=== PATIENT | male | born 1950 | race Caucasian/White ===

== ENCOUNTER 2017-07-12 09:05 | Day surgery (SDC) | payer OTHER ==
[~2017-07-12 09:05] MED LIST: ALBU.083IS IH; ALBU90I INH; ASCO500 PO; ASPI81CH PO; ASPI81EC PO; AZIT250 PO; AZIT500 PO; Arthritis Pai42.5 GM TOP; Artificial Tear15 M4 BOTHEYES; BUPR75 PO; CLON.5 PO; CLON1 PO; COLL250TO TOP; DOC250 PO; FERR325 PO; FLUO20 PO; FORM12IH IH; GABA400 PO; GABA600 PO; HYDACE5 PO; HYDMETSO BOTHEYES; HYTRIN; INSR10I SC; ISOMON60ER PO; Isosorbide Mono60 MG PO; LISI5 PO; LMX TOP; LORA10 PO; LORA10ER PO; METCAR750 PO; METO50 PO; MOME220I IH; MORP15ER PO; NITR.4SL SL; OMEP20ER PO; ONDA4 PO; OXYACE5T PO; OXYC5 PO; POTA8 PO; PRED10 PO; Prilosec Otc20 MG PO; ROCEPHIN IV; SENN187 PO; SIMV10 PO; SOLUMEDROL IV; TEMA7.5 PO; TERA5; TERA5 PO; TERAZOSIN PO; TERB24TC TOP; TIOT18 IH; TRAZ100 PO; VITAMIN D31000 UNIT PO; Ventolin5 MG/1 ML IH
== END 2017-07-12 23:44 | disposition home or self-care (01) ==
LOC: WOUND 09:05
PROC: 0HBMXZZ Excision of Right Foot Skin, External Approach (ICD-10-PCS; principal; 2017-07-12)
DX: L97.511 Non-pressure chronic ulcer of other part of right foot limited to breakdown of skin (principal); I10 Essential (primary) hypertension; E78.5 Hyperlipidemia, unspecified
CPT/HCPCS: G0463

== ENCOUNTER 2017-07-19 14:12 | Day surgery (SDC) | payer OTHER | END 2017-07-19 22:47 | disposition home or self-care (01) | LOC: WOUND 14:12 | PROC: 0HBMXZZ Excision of Right Foot Skin, External Approach (ICD-10-PCS; principal; 2017-07-19) | DX: L97.511 Non-pressure chronic ulcer of other part of right foot limited to breakdown of skin (principal); L98.499 Non-pressure chronic ulcer of skin of other sites with unspecified severity; B19.20 Unspecified viral hepatitis C without hepatic coma; I25.10 Atherosclerotic heart disease of native coronary artery without angina pectoris; Z87.891 Personal history of nicotine dependence; L89.529 Pressure ulcer of left ankle, unspecified stage | CPT/HCPCS: 87081; G0463 ==

== ENCOUNTER 2017-07-26 12:27 | Day surgery (SDC) | payer OTHER | END 2017-07-26 22:40 | disposition home or self-care (01) | LOC: WOUND 12:27 | PROC: 2W1SX6Z Compression of Right Foot using Pressure Dressing (ICD-10-PCS; principal; 2017-07-26) | PROC: 0HBMXZZ Excision of Right Foot Skin, External Approach (ICD-10-PCS; principal; 2017-07-26) | DX: L97.512 Non-pressure chronic ulcer of other part of right foot with fat layer exposed (principal); L98.499 Non-pressure chronic ulcer of skin of other sites with unspecified severity; B19.20 Unspecified viral hepatitis C without hepatic coma; L89.529 Pressure ulcer of left ankle, unspecified stage; Z87.891 Personal history of nicotine dependence | CPT/HCPCS: G0463 ==

== ENCOUNTER 2017-08-02 12:22 | Day surgery (SDC) | payer OTHER | END 2017-08-02 13:52 | disposition home or self-care (01) | LOC: WOUND 12:22 | PROC: 0HBMXZZ Excision of Right Foot Skin, External Approach (ICD-10-PCS; principal; 2017-08-02) | PROC: 2W1SX6Z Compression of Right Foot using Pressure Dressing (ICD-10-PCS; principal; 2017-08-02) | DX: L97.512 Non-pressure chronic ulcer of other part of right foot with fat layer exposed (principal); L98.499 Non-pressure chronic ulcer of skin of other sites with unspecified severity; B19.20 Unspecified viral hepatitis C without hepatic coma | CPT/HCPCS: 87070; 87075; 87081; 87205; G0463 ==

== ENCOUNTER 2017-08-09 12:30 | Day surgery (SDC) | END 2017-08-09 13:51 | disposition home or self-care (01) ==

== ENCOUNTER 2017-08-16 00:22 | Day surgery (SDC) | payer OTHER | END 2017-08-16 23:07 | disposition home or self-care (01) | LOC: WOUND 00:22 | PROC: 0HBMXZZ Excision of Right Foot Skin, External Approach (ICD-10-PCS; principal; 2017-08-16) | PROC: 2W1SX6Z Compression of Right Foot using Pressure Dressing (ICD-10-PCS; principal; 2017-08-16) | DX: L97.512 Non-pressure chronic ulcer of other part of right foot with fat layer exposed (principal) | CPT/HCPCS: G0463 ==

== ENCOUNTER 2017-08-23 12:27 | Day surgery (SDC) | payer OTHER | END 2017-08-23 14:17 | disposition home or self-care (01) | LOC: WOUND 12:27 | PROC: 0HBMXZZ Excision of Right Foot Skin, External Approach (ICD-10-PCS; principal; 2017-08-23) | PROC: 2W1SX6Z Compression of Right Foot using Pressure Dressing (ICD-10-PCS; principal; 2017-08-23) | DX: L97.512 Non-pressure chronic ulcer of other part of right foot with fat layer exposed (principal); B19.20 Unspecified viral hepatitis C without hepatic coma | CPT/HCPCS: G0463 ==

== ENCOUNTER 2017-08-31 00:12 | Day surgery (SDC) | payer OTHER | END 2017-08-31 23:21 | disposition home or self-care (01) | LOC: WOUND 00:12 | PROC: 2W1SX6Z Compression of Right Foot using Pressure Dressing (ICD-10-PCS; principal; 2017-08-31) | PROC: 0HBMXZZ Excision of Right Foot Skin, External Approach (ICD-10-PCS; principal; 2017-08-31) | DX: L97.512 Non-pressure chronic ulcer of other part of right foot with fat layer exposed (principal); L98.499 Non-pressure chronic ulcer of skin of other sites with unspecified severity; B19.20 Unspecified viral hepatitis C without hepatic coma ==

== ENCOUNTER 2017-09-07 09:10 | Day surgery (SDC) | payer OTHER | END 2017-09-07 10:26 | disposition home or self-care (01) | LOC: WOUND 09:10 | PROC: 2W1SX6Z Compression of Right Foot using Pressure Dressing (ICD-10-PCS; principal; 2017-09-07) | DX: L97.512 Non-pressure chronic ulcer of other part of right foot with fat layer exposed (principal); B19.20 Unspecified viral hepatitis C without hepatic coma | CPT/HCPCS: G0463 ==

== ENCOUNTER 2017-09-26 14:00 | Day surgery (SDC) | payer OTHER | END 2017-09-26 14:47 | disposition home or self-care (01) | LOC: WOUND 14:00 | PROC: 2W0SX6Z Change Pressure Dressing on Right Foot (ICD-10-PCS; principal; 2017-09-26) | DX: Z48.00 Encounter for change or removal of nonsurgical wound dressing (principal); L97.512 Non-pressure chronic ulcer of other part of right foot with fat layer exposed; I73.9 Peripheral vascular disease, unspecified; I77.6 Arteritis, unspecified; B19.20 Unspecified viral hepatitis C without hepatic coma; I25.2 Old myocardial infarction; F11.20 Opioid dependence, uncomplicated; F32.9 Major depressive disorder, single episode, unspecified; G47.29 Other circadian rhythm sleep disorder; Z95.5 Presence of coronary angioplasty implant and graft; Z87.891 Personal history of nicotine dependence; Z79.899 Other long term (current) drug therapy ==

== ENCOUNTER → 2017-12-02 | Outpatient (CLI) | payer OTHER | LOC: LAB 12:05 → LAB SHORT 12:05 | DX: L97.513 Non-pressure chronic ulcer of other part of right foot with necrosis of muscle (principal) | CPT/HCPCS: 87070; 87077; 87186; 87205 ==

== ENCOUNTER 2018-05-03 11:20 | Observation (INO) | payer OTHER ==
[~2018-05-03] VITALS: Ht 167.6 cm; Wt 77.6 kg
[~2018-05-03 11:20] MED LIST changes: -Prilosec Otc20 MG PO
[2018-05-03 11:53] LABS: BASOPHILS ABSOLUTE AUTO 0.01 K/mm3 (0.00-0.23); BASOPHILS PERCENT AUTO 0 % (0-2); EOSINOPHILS ABSOLUTE AUTO 0.31 K/mm3 (0.00-0.68); EOSINOPHILS PERCENT AUTO 3 % (0-6); Hematocrit 32.9 % (37.0-53.0); Hemoglobin 10.8 g/dL (13.5-17.5); IMMATURE GRAN ABSOLUTE AUTO 0.04 K/mm3 (0.00-0.10); IMMATURE GRAN PERCENT AUTO 0 % (0-1); LYMPHOCYTES ABSOLUTE AUTO 1.47 K/mm3 (0.84-5.20); LYMPHOCYTES PERCENT AUTO 15 % (21-46); MONOCYTES PERCENT AUTO 6 % (4-13); Mean Corpuscular HGB 31.2 pg (26.0-34.0); Mean Corpuscular HGB Conc 32.8 g/dL (31.5-36.5); Mean Corpuscular Volume 95 fL (80-100); Mean Platelet Volume 12.3 fL (9.1-12.4); NEUTROPHILS PERCENT AUTO 76 % (41-73); Platelet Count 216 K/mm3 (150-400); RDW Coefficient Variation 12.1 % (11.7-14.2); RDW Standard Deviation 41.8 fL (35.1-46.3); Red Blood Cell Count 3.46 M/mm3 (4.30-5.90); White Blood Cell Count 10.03 K/mm3 (4.00-11.30)
[2018-05-03] MEDS ORDERED: CLARITIN PO (12:11)
[2018-05-03] MEDS ORDERED: Omeprazole20 M1 PO (12:11)
[2018-05-03] MEDS ORDERED: DOC250 PO ×2 (12:13→15:32)
[2018-05-03 12:16] LABS: Alanine Aminotransfer (ALT/SGP 27 U/L (12-78); Albumin, Blood 3.1 g/dL (3.4-5.0); Albumin/Globulin Ratio 0.9 (0.8-1.8); Alk Phos 46 U/L (50-136); Anion Gap 6 mmol/L (6-16); Aspartate Aminotrans (AST/SGOT 22 U/L (12-37); Bilirubin, Total 0.7 mg/dL (0.1-1.0); Blood Urea Nitrogen 14 mg/dL (8-24); Bun/Creatinine Ratio 13.6 (12.0-20.0); CO2, Blood 28 mmol/L (21-32); Calcium, Blood 8.9 mg/dL (8.5-10.1); Chloride, Blood 108 mmol/L (98-108); Creatinine, Blood 1.03 mg/dL (0.60-1.20); Globulin, Blood 3.6 g/dL (2.2-4.0); Glomerular Filtration Rate >60 (60-); Glucose, Blood 116 mg/dL (70-99); Potassium, Blood 3.6 mmol/L (3.5-5.5); Sodium, Blood 142 mmol/L (136-145); Total Protein, Blood 6.7 g/dL (6.4-8.2); Troponin I 0.019 ng/mL (0.000-0.040)
[2018-05-03] MEDS ORDERED: **INCOMPLETE MED REC (15:16)
[2018-05-03] MEDS ORDERED: ACET325 PO (15:27)
[2018-05-03] MEDS ORDERED: ACET500 PO (15:27)
[2018-05-03] MEDS ORDERED: AMLO5 PO (15:28)
[2018-05-03] MEDS ORDERED: Aspir 8181 MG PO (15:29)
[2018-05-03] MEDS ORDERED: ASCO500 PO (15:29)
[2018-05-03] MEDS ORDERED: CHOL10002 PO (15:30)
[2018-05-03] MEDS ORDERED: CLON.5 PO (15:31)
[2018-05-03] MEDS ORDERED: CYAN500 PO (15:31)
[2018-05-03] MEDS ORDERED: DONE5 PO (15:33)
[2018-05-03] MEDS ORDERED: FOLI400 PO (15:34)
[2018-05-03] MEDS ORDERED: Ferrous Sulfat325 M2 PO (15:35)
[2018-05-03] MEDS ORDERED: LISI5 PO (15:35)
[2018-05-03] MEDS ORDERED: Isosorbide Mono60 MG PO (15:35)
[2018-05-03] MEDS ORDERED: LOPE2C PO (15:36)
[2018-05-03] MEDS ORDERED: CLARITIN10 MG PO (15:36)
[2018-05-03] MEDS ORDERED: ONDA4 PO (15:37)
[2018-05-03] MEDS ORDERED: Prilosec Otc20 MG PO (15:37)
[2018-05-03] MEDS ORDERED: SIMV10 PO (15:38)
[2018-05-03] MEDS ORDERED: OXYC5 PO (15:38)
[2018-05-03] MEDS ORDERED: Hytrin1 MG PO (15:40)
[2018-05-03] MEDS ORDERED: TRAZ100 PO (15:40)
[2018-05-03] MEDS ORDERED: [UNRECOGNIZED DRUG - OTHER] TOP (15:58)
--- NOTE | 2018-05-03 18:50 | NUR ---
SHIFT SUMMARY ASSUMED CARE OF PT AT APPROXIMATELY 1630. PT ALERT AND ORIENTED. VS STABLE. PT COMPLAINS OF SUBSTERNAL PAIN 06/21. PT MEDICATED PRIOR TO ARRIVAL TO UNIT. PT ORIENTED TO UNIT. PT ABLE TO AMBULATE TO BED WITH SBA. PT HAS LEFT SIDED WEAKNESS FROM PREVIOUS CVA. WOUND TO LEFT ANKLE PRESENT ON ADMISSION. PICTURES IN CHART. O2 SATS >92% ON RA. PT STATES HE USES 2L NC AT HOME FOR SLEEPING. NO CHANGES SINCE INITIAL ASSESSMENT. WILL CONTINUE TO MONITOR AND REPORT TO ONCOMING RN. CALL LIGHT IN REACH.
--- NOTE | 2018-05-04 00:45 | NUR ---
ASSUMED CARE OF PATIENT AT APPROXIMATELY 1915 FROM SOY Hunt RN. PATIENT ALERT AND ORIENTED X4; FORGETFUL AT TIMES. PATIENT INTIALLY DENIED PAIN BUT REPORTS LEGS HAVE TREMOR; N/T IN FEET; WOUND TO LEFT ANKLE; PHOTOS TAKEN BY DAYSNDFT RN. SBA OUT OF BED. PATIENT DENIES CP/PRESSURE, DIZZINESS OR NAUSEA. NSR ON TELE; OXYGEN SATURATION ABOVE 90% ON ROOM AIR; PATIENT USES 2.5LPM AT NIGHT. LATER IN SHIFT PATIENT REPORTS PAIN IN BACK; REQUESTED MORPHINE; NO ORDER; PATIENT REQUESTED PRN ANXIETY MEDICATION. NS INFUSING PER ORDER; 1X PIV S/L. PATIENT CURRENTLY SLEEPING IN BED; CALL LIGHT IN REACH; BED IN LOWEST POSISTION; BED ALARM ON; WILL CONTINUE TO MONITOR AND ASSESS UNTIL END OF SHIFT.
[2018-05-04 04:18] LABS: BASOPHILS ABSOLUTE AUTO 0.01 K/mm3 (0.00-0.23); BASOPHILS PERCENT AUTO 0 % (0-2); EOSINOPHILS ABSOLUTE AUTO 0.28 K/mm3 (0.00-0.68); EOSINOPHILS PERCENT AUTO 4 % (0-6); Hematocrit 26.2 % (37.0-53.0); Hemoglobin 8.5 g/dL (13.5-17.5); IMMATURE GRAN ABSOLUTE AUTO 0.03 K/mm3 (0.00-0.10); IMMATURE GRAN PERCENT AUTO 0 % (0-1); LYMPHOCYTES ABSOLUTE AUTO 1.82 K/mm3 (0.84-5.20); LYMPHOCYTES PERCENT AUTO 25 % (21-46); MONOCYTES ABSOLUTE AUTO 0.48 K/mm3 (0.16-1.47); MONOCYTES PERCENT AUTO 7 % (4-13); Mean Corpuscular HGB Conc 32.4 g/dL (31.5-36.5); Mean Corpuscular Volume 96 fL (80-100); Mean Platelet Volume 11.9 fL (9.1-12.4); NEUTROPHILS ABSOLUTE AUTO 4.65 K/mm3 (1.96-9.15); NEUTROPHILS PERCENT AUTO 64 % (41-73); Platelet Count 190 K/mm3 (150-400); RDW Coefficient Variation 12.4 % (11.7-14.2); RDW Standard Deviation 42.7 fL (35.1-46.3); Red Blood Cell Count 2.74 M/mm3 (4.30-5.90); White Blood Cell Count 7.27 K/mm3 (4.00-11.30)
[2018-05-04 04:37] LABS: Anion Gap 5 mmol/L (6-16); Blood Urea Nitrogen 15 mg/dL (8-24); Bun/Creatinine Ratio 15.8 (12.0-20.0); CO2, Blood 27 mmol/L (21-32); Calcium, Blood 7.7 mg/dL (8.5-10.1); Chloride, Blood 112 mmol/L (98-108); Creatinine, Blood 0.95 mg/dL (0.60-1.20); Glomerular Filtration Rate >60 (60-); Glucose, Blood 89 mg/dL (70-99); Potassium, Blood 3.6 mmol/L (3.5-5.5); Sodium, Blood 144 mmol/L (136-145)
[2018-05-04 06:20] LABS: Percent Saturation 69.5 % (20.0-50.0)
--- NOTE | 2018-05-04 07:20 | NUR ---
ASSUMED CARE: REPORT RECEIVED FROM OLEG Campos RN. ASSUMED CARE OF THIS PT AT APPROX 0700. ROUNDING COMPLETE, PT IS RESTING QUIETLY. CALL FROM SAPNA JETER, STS PT OKAY TO HAVE BREAKFAST BUT SHOULD BE NPO AFTER 0900 THIS MORNING W/ PLANS FOR STRESS TEST TO OCCUR AROUND [phone] TODAY. IT IS DISCUSSED THAT A ONE DAY STRESS TEST WILL NOT BE POSSIBLE R/T PT RECEIVING ISOSORBIDE YESTERDAY EVENING. A TWO DAY STRESS TEST WILL INSTEAD BE COMPLETED & THE PT SHOULD NOT HAVE PRESCRIBED ISOSORBIDE UNTIL STRESS TEST COMPLETE. NURSE NOTIFY PLACED & PROVIDER AWARE. WILL CONTINUE TO MONITOR & UPDATE NEEDED.
--- NOTE | 2018-05-04 13:30 | NUR ---
ASSUMED CARE OF PT. ASSESSMENT CONSISTENT WITH PREVIOUS NURSE. WILL CONTINUE TO MONITOR.
--- NOTE | 2018-05-04 18:08 | NUR ---
SHIFT SUMMARY PT ALERT AND ORIENTED. VS STABLE. 02 SATS HAVE REMAINED ABOVE 92% ON RA. PT DENIES ANY CHEST PAIN THIS SHIFT. PT COMPLAINS OF PAINS IN HIS CALVES IS RELIEVED WITH MOVEMENT AND TYLENOL. PT ABLE TO AMBULATE TO BATHROOM NEEDED WITH SBA. PT STATES HE DOES NOT HAVE MUCH OF AN APPETITE. WILL CONTINUE TO MONITOR AND REPORT TO ONCOMING RN. CALL LIGHT IN REACH.
--- NOTE | 2018-05-05 03:17 | NUR ---
ASSUMED CARE OF PATIENT AT APPROXIMATELY 1915 FROM SOY Hunt RN. PATIENT ALERT AND ORIENTED X4; FORGETFUL AT TIMES. PATIENT REPORT PAIN IN BACK, HIP AND LEGS; MEDICATED PER EMAR; PATIENT MEDICATED FOR ANXIETY. SBA OUT OF BED. PATIENT DENIES CP/PRESSURE, DIZZINESS OR NAUSEA. NSR ON TELE; OXYGEN SATURATION ABOVE 90% ON ROOM AIR; PATIENT USES 2.5LPM AT NIGHT. NS INFUSING PER ORDER; MEDICAL TELE STATUS; SECOND PART OF STRESS TEST TODAY. PATIENT CURRENTLY SLEEPING IN BED; CALL LIGHT IN REACH; BED IN LOWEST POSISTION; BED ALARM ON; WILL CONTINUE TO MONITOR AND ASSESS UNTIL END OF SHIFT.
[2018-05-05 03:49] LABS: BASOPHILS ABSOLUTE AUTO 0.01 K/mm3 (0.00-0.23); BASOPHILS PERCENT AUTO 0 % (0-2); EOSINOPHILS ABSOLUTE AUTO 0.24 K/mm3 (0.00-0.68); EOSINOPHILS PERCENT AUTO 4 % (0-6); Hematocrit 27.4 % (37.0-53.0); IMMATURE GRAN ABSOLUTE AUTO 0.03 K/mm3 (0.00-0.10); IMMATURE GRAN PERCENT AUTO 1 % (0-1); LYMPHOCYTES ABSOLUTE AUTO 1.66 K/mm3 (0.84-5.20); LYMPHOCYTES PERCENT AUTO 26 % (21-46); MONOCYTES ABSOLUTE AUTO 0.57 K/mm3 (0.16-1.47); MONOCYTES PERCENT AUTO 9 % (4-13); Mean Corpuscular HGB 31.8 pg (26.0-34.0); Mean Corpuscular HGB Conc 32.8 g/dL (31.5-36.5); Mean Corpuscular Volume 97 fL (80-100); Mean Platelet Volume 11.7 fL (9.1-12.4); NEUTROPHILS ABSOLUTE AUTO 3.81 K/mm3 (1.96-9.15); NEUTROPHILS PERCENT AUTO 60 % (41-73); Platelet Count 192 K/mm3 (150-400); RDW Coefficient Variation 12.2 % (11.7-14.2); RDW Standard Deviation 43.2 fL (35.1-46.3); Red Blood Cell Count 2.83 M/mm3 (4.30-5.90); White Blood Cell Count 6.32 K/mm3 (4.00-11.30)
[2018-05-05 04:23] LABS: Albumin, Blood 2.7 g/dL (3.4-5.0); Anion Gap 7 mmol/L (6-16); Blood Urea Nitrogen 12 mg/dL (8-24); Bun/Creatinine Ratio 13.6 (12.0-20.0); CO2, Blood 25 mmol/L (21-32); Calcium, Blood 7.9 mg/dL (8.5-10.1); Chloride, Blood 114 mmol/L (98-108); Creatinine, Blood 0.88 mg/dL (0.60-1.20); Glomerular Filtration Rate >60 (60-); Glucose, Blood 88 mg/dL (70-99); Phosphorus, Blood 2.7 mg/dL (2.5-4.9); Potassium, Blood 3.5 mmol/L (3.5-5.5); Sodium, Blood 146 mmol/L (136-145)
--- NOTE | 2018-05-05 06:00 | NUR ---
NO ACUTE CHANGES TO REPORT. VSS. PATIENT SLEPT ABOUT NINE HOURS LAST NIGHT. WILL CONTINUE TO MONITOR AND ASSESS UNTIL END OF SHIFT.
[2018-05-05] MEDS ORDERED: MORP15ER PO (09:58)
--- NOTE | 2018-05-05 13:05 | NUR ---
Spiritual care visit conducted. Patient was lying in bed and alert. I introduced myself and patient welcomed me in. Patient stated that he was not doing well and that he takes a few steps forward but then takes more backwards. I listened empathically, eplored patient's belief system and explored sources of dignity. I conducted a life review and highlighted the coping skills and resouces that he has in place already. I quoted inspirational Bible verses that fit in with patient's alistair tradition and I provided prayer. Patient responded well to all interventions and showed signs of restored alistair and renewed hope. Patient expressed gratitude for my visit.
--- NOTE | 2018-05-05 13:10 | NUR ---
This morning the pt has been at his baseline mentation, per his Katrin who was here in the room this morning. Alert and oriented patient, sometimes gives contradictory information, but according to his this is due to a CVA which affected his verbal expression. He carries on conversation normally otherwise, and cooperative with his care today. Ambulatory independently to the bathroom today without difficulty. He has had ongoing nausea, without emesis today. Tolerated his clear liquid diet following the second portion of the stress test this noontime, but did require zofran in order to eat, due to the effects of the injected medication during the stress test. He also told me that he had two loose/diarrhea stools this morning, for which I did give him the ordered prn medications. He does have intermittent tremors and neuropathy in arms and legs, and refused his SCDs due to the fact that they made his tremors worse, he said. Also complained of pain, which is chronic, due to a "botched hip surgery at the [facility]" and his pain medications were reordered by the hospitalist today.
--- NOTE | 2018-05-05 17:30 | NUR ---
SHIFT SUMMARY PT HAS DONE WELL SINCE ARRIVING FROM PCU. DENIED CP, TIGHTNESS, OR NUMBNESS/TING. HAD 2ND PART OF TESTING COMPLETED AND MIDWIFE PRACTITIONER CONSULT CALLED. FAMILY AT BEDSIDE CURRENTLY.
[2018-05-06 04:28] LABS: BASOPHILS ABSOLUTE AUTO 0.01 K/mm3 (0.00-0.23); BASOPHILS PERCENT AUTO 0 % (0-2); EOSINOPHILS ABSOLUTE AUTO 0.23 K/mm3 (0.00-0.68); EOSINOPHILS PERCENT AUTO 4 % (0-6); Hematocrit 27.3 % (37.0-53.0); Hemoglobin 8.9 g/dL (13.5-17.5); IMMATURE GRAN ABSOLUTE AUTO 0.02 K/mm3 (0.00-0.10); IMMATURE GRAN PERCENT AUTO 0 % (0-1); LYMPHOCYTES ABSOLUTE AUTO 1.41 K/mm3 (0.84-5.20); LYMPHOCYTES PERCENT AUTO 23 % (21-46); MONOCYTES ABSOLUTE AUTO 0.55 K/mm3 (0.16-1.47); MONOCYTES PERCENT AUTO 9 % (4-13); Mean Corpuscular HGB 31.1 pg (26.0-34.0); Mean Corpuscular HGB Conc 32.6 g/dL (31.5-36.5); Mean Corpuscular Volume 96 fL (80-100); Mean Platelet Volume 11.9 fL (9.1-12.4); NEUTROPHILS ABSOLUTE AUTO 3.85 K/mm3 (1.96-9.15); NEUTROPHILS PERCENT AUTO 63 % (41-73); Platelet Count 181 K/mm3 (150-400); RDW Coefficient Variation 12.3 % (11.7-14.2); RDW Standard Deviation 42.6 fL (35.1-46.3); Red Blood Cell Count 2.86 M/mm3 (4.30-5.90); White Blood Cell Count 6.07 K/mm3 (4.00-11.30)
[2018-05-06 04:46] LABS: Anion Gap 6 mmol/L (6-16); Blood Urea Nitrogen 8 mg/dL (8-24); Bun/Creatinine Ratio 8.8 (12.0-20.0); CO2, Blood 27 mmol/L (21-32); Chloride, Blood 113 mmol/L (98-108); Creatinine, Blood 0.91 mg/dL (0.60-1.20); Glomerular Filtration Rate >60 (60-); Glucose, Blood 91 mg/dL (70-99); Potassium, Blood 3.4 mmol/L (3.5-5.5); Sodium, Blood 146 mmol/L (136-145)
--- NOTE | 2018-05-06 08:10 | NUR ---
pt sleeping wakes to verbal stimuli pt denies cp at this time stated he finally was able to sleep well they ordered his routine sleep meds pt sched this am for angio npo
--- NOTE | 2018-05-06 09:50 | NUR ---
dr cleveland by to see pt also cardiology called pt angio will be later est 1130 to 1200 vs 1000 discussed with pt and family
--- NOTE | 2018-05-06 13:26 | NUR ---
PT [facility] LEFT FEM ACCESS. CLEAN DRY AND INTACT. PT KEEPS TRYING TO RAISE HEAD OFF BED. APPEARS SLIGHTLY CONFUSED. PER SPOUSE BASELINE FOR PATIENT. SPOUSE HAS CONCERNS PT TO BE DISCHARGED TO HOME AND SHE CANNOT TAKE CARE OF HIM. WILL MAKE SS REFERRAL PER FAMILY REQUEST. THEY WE[facility].
--- NOTE | 2018-05-06 18:43 | NUR ---
END OF SHIFT; PT ARRIVED TO PCU AFTER ANGIO PROCEDURE TODAY. LEFT FEMORAL SITE. NO INTERVENTIONS. PT IS FROM [facility]. PER SPOUSE SHE WOULD LIKE PATIENT TO RETURN THERE SINCE SHE IS UNABLE TO TAKE CARE OF HIM AT THIS TIME AT HOME SINCE HE HAS HAD REPEATED FALLS. PT HAS HX OF DEMENTIA AND CVA'S X 3. PT ALSO HAS CHRONIC HIP PAIN. VERY PAINFULL TOO MOVE. SPOUSE STATES PT HAS NOT BEEN EATING FOR 4 DAYS. AFTER SPOUSE LEAVES FOR UNRULY PT EATS 75% OF UNRULY MEAL. PT HAS NS 500ML BAG RUNNING AT 100ML AN HOUR X 1 BAG. HE HAS BEEN MEDICATED FOR PAIN AND ANXIETY SINCE ARRIVING TO PCU. ANGIO SITE IS CLEAN DRY AND INTACT. NO BLEEDING OR SWELLING IS NOTED. WILL CONTINUE TO MONITOR THIS PATIENT UNTIL REPORT AND HAND OFF TO NOC SHIFT RN.
--- NOTE | 2018-05-07 06:31 | NUR ---
SHIFT SUMMARY PT SLEEPING IN ROOM COMFORTABLY. NO ACUTE CHANGES IN STATUS OVERNIGHT. PT SLEPT WELL T/O SHIFT. EGG CRATE PAD PLACED TO BED FOR BACK PAIN. PT HAD NO OTHER COMPLAINTS OF PAIN AFTER MEDCATIONS PER EMAR. PT WAS ABLE TO AMBULATE TO RR W/ SBA. FEMORAL INSERTION SITE WNL, NO HEMATOMAS NOTED. PT REPORTS TENDERNESS TO AREA. CALL LIGHT IN REACH. PT CALLS APPROPRIATELY.
--- NOTE | 2018-05-07 18:53 | NUR ---
END OF SHIFT SUMMARY; NO ACUTE CHANGES IN CONDITION NOTED IN PATIENT CONDITION TODAY. PT WORKED WITH PT TODAY AND WALKED AROUND UNIT WITH MINIMAL ASSIST.
--- NOTE | 2018-05-08 06:14 | NUR ---
SHIFT SUMMARY- PT HAS REMAINED AOX4 THROUGHOUT SHIFT. VSS. PLEASANT AND COOPERATIVE WITH CARE. PT CONTINUES TO AMBULATE WITH STANDBY ASSIST TO THE RESTROOM THROUGHOUT THE NIGHT. PT HAS DENIED CHEST PAIN THROUGHOUT SHIFT. REPORTS CHRONIC PAIN TO LOWER BACK AND R HIP THAT DECREASES WITH ORDERED MEDICATIONS- MEDICATED MULTIIPLE TIMES THROUGHOUT NIGHT FOR PAIN. NO OTHER CHANGES FROM INITIAL ASSESSMENT. WILL CONTINUE TO MONITOR AND REPORT TO ONCOMING SHIFT RN. BED IN LOW POSITION, CALL LIGHT IN REACH.
[2018-05-08 06:30] LABS: Anion Gap 8 mmol/L (6-16); CO2, Blood 26 mmol/L (21-32); Chloride, Blood 111 mmol/L (98-108); Potassium, Blood 3.6 mmol/L (3.5-5.5); Sodium, Blood 145 mmol/L (136-145)
[2018-05-08 06:31] LABS: Blood Urea Nitrogen 9 mg/dL (8-24); Bun/Creatinine Ratio 10.3 (12.0-20.0); Calcium, Blood 8.1 mg/dL (8.5-10.1); Creatinine, Blood 0.87 mg/dL (0.60-1.20); Glomerular Filtration Rate >60 (60-); Glucose, Blood 88 mg/dL (70-99)
--- NOTE | 2018-05-08 13:40 | NUR ---
PT SLEEPING IN BED THROUGHOUT THE DAY. ALERT AND ORIENTED X3. C/O 5/10 LOW BACK / RIGHT HIP PAIN, MEDICATED WITH PRN PAIN MEDS. LUNG SOUNDS CLEAR, NSR WITH PACs RATE 60s PER TELEMETRY. AMBULATING TO BATHROOM WITH STANDBY ASSIST. TRACE EDEMA TO BLE, TRACE EDEMA NOTED TO RIGHT HAND. C/O NAUSEA THIS AFTERNOON, MEDICATED WITH IV ZOFRAN. WILL CONTINUE TO MONITOR.
--- NOTE | 2018-05-08 13:49 | NUR ---
PT STABLE FOR TRANSFER TO MEDICAL FLOOR. REPORT CALLED TO [facility] ON MEDICAL FLOOR. PT TRANSFERED TO MEDICAL FLOOR WITH [facility]ONG[facility].
--- NOTE | 2018-05-08 19:27 | NUR ---
NO ACUTE CHANGES NOTED. NO CURRENT COMPLAINTS OF PAIN OR DISCOMFORT NOTED. WILL CONTINUE TO MONITOR FOR CHANGES.
--- NOTE | 2018-05-09 04:29 | NUR ---
SHIFT SUMMARY THE PATIENT PRESENTED THIS SHIFT, INDEPENDENT IN HIS ROOM. THE PATIENT'S VITALS WERE WNL, HE IS A&O X4, AND HAD CLEAR LUNGS. THE PATIENT REQUESTED TO SKIP BREAKFAST TO SLEEP IN IN THE MORNING. THE PATIENT IS PLEASANT TO VISIT WITH. THE PATIENT IS SLEEPING AT THIS TIME, WILL CONTINUE TO MONITOR.
[2018-05-09] MEDS ORDERED: METO50 PO (10:57)
--- NOTE | 2018-05-09 12:41 | NUR ---
HANDOFF/DISCHARGE NOTE PROVIDED PT W/DISCHARGE INFO IN HARDCOPY/VERBAL FORM. REMOVED IV WNL. PROVIDED A TAXI TO TRANSPORT PT HOME. SET UP MEDICATION TO BE FILLED AT [facility]. PT PROVIDED WITH CLEAN SCRUBS AND SLIPPERS FOR TRANSPORT. HEALTHCARE PERSONEL ASSISTED PT TO TAXI VIA WHEELCHAIR. PT HAD NO FURTHER QUESTIONS.
== END 2018-05-09 12:14 | disposition home or self-care (01) ==
LOC: ER 11:20 → PCU 11:21 → MEDS 11:21 → PCU 11:21 → ER 14:32 → PCU 16:30 → ER 16:35 → PCU 05-04 11:31 → SURS 05-05 13:13 → PCU 05-06 13:10 → MEDS 05-08 14:08 → ENPENDDIS 05-09 10:12 → MEDS 05-09 12:14
PROVIDERS: Emergency Medicine; Hospitalist; ADMIT Internal Medicine
DX: R07.89 Other chest pain (principal); I25.10 Atherosclerotic heart disease of native coronary artery without angina pectoris; R94.39 Abnormal result of other cardiovascular function study; R79.89 Other specified abnormal findings of blood chemistry; J44.9 Chronic obstructive pulmonary disease, unspecified; E87.6 Hypokalemia; R19.7 Diarrhea, unspecified; G62.9 Polyneuropathy, unspecified; B00.1 Herpesviral vesicular dermatitis; I12.9 Hypertensive chronic kidney disease with stage 1 through stage 4 chronic kidney disease, or unspecified chronic kidney disease; N18.9 Chronic kidney disease, unspecified; D63.1 Anemia in chronic kidney disease; M54.9 Dorsalgia, unspecified; G89.29 Other chronic pain; I25.2 Old myocardial infarction; E78.5 Hyperlipidemia, unspecified; M19.90 Unspecified osteoarthritis, unspecified site; Z88.8 Allergy status to other drugs, medicaments and biological substances; Z88.1 Allergy status to other antibiotic agents; Z88.0 Allergy status to penicillin; Z87.891 Personal history of nicotine dependence; Z86.73 Personal history of transient ischemic attack (TIA), and cerebral infarction without residual deficits; Z79.899 Other long term (current) drug therapy; Z79.82 Long term (current) use of aspirin
CPT/HCPCS: 36415; 71046; 71260; 78452; 80048; 80053; 80069; 82728; 83540; 83550; 84484; 85025; 85379; 93005; 93010; 93017; 93454; 96361; 96372; 96374-59; 96375-59; 96376; 97161; 99152; 99153; 99285-25; A9500; C1760; C1769; G0378; J0706; J1644; J1650; J2250; J2270; J2405; J2785; J3010; J3480; J7030; J7040; Q9967